=== PATIENT | male | born 1970 | race Caucasian/White ===

== ENCOUNTER 2019-12-03 17:21 | Emergency (ER) | payer OTHER ==
[~2019-12-03] VITALS: Ht 177.8 cm; Wt 150.0 kg
[2019-12-03 17:34] VITALS: Ht 177.8 cm; Wt 150.0 kg
[2019-12-03] MEDS ORDERED: BP MEDICATION (17:36)
[2019-12-03] MEDS ORDERED: OMEPRAZOLE20 M1 PO (17:36)
[2019-12-03] MEDS ORDERED: COREG 3.1253.125 MG (17:36)
[2019-12-03] MEDS ORDERED: HYDROCHLOROTHIA25 MG PO (17:37)
[2019-12-03] MEDS ORDERED: VOLTAREN75 MG PO (18:25)
[2019-12-03] MEDS ORDERED: BACLOFEN20 M1 PO (18:25)
[2019-12-03 18:55] VITALS: BP 166/114
== END 2019-12-03 18:56 | disposition home or self-care (01) ==
LOC: D.ER 17:21
DX: S43.401A Unspecified sprain of right shoulder joint, initial encounter (principal); W19.XXXA Unspecified fall, initial encounter; M25.511 Pain in right shoulder; I10 Essential (primary) hypertension; K21.9 Gastro-esophageal reflux disease without esophagitis